=== PATIENT | female | born 1980 | race Caucasian/White ===

== ENCOUNTER 2022-07-09 19:33 | Emergency (ER) | payer BC, SELFPAY ==
[2022-07-09 19:35] VITALS: BP 143/86; PULSE 86; RESP 18; TEMP 37.1; O2SAT 100
[2022-07-09 21:55] VITALS: BP 122/80; PULSE 74; RESP 18; O2SAT 100
[2022-07-09 22:41] LABS: Basophils Absolute Auto 0.1 K/mm3 (0.0-0.1); Basophils Percent Auto 0.5 % (0.2-1.2); Eosinophils Absolute Auto 0.2 K/mm3 (0-0.3); Eosinophils Percent Auto 1.2 % (0-4.4); Hematocrit 46.2 % (37.0-47.0); Hemoglobin 15.5 g/dL (12.0-15.0); Immature Granulocyte Absolute 0.04 K/mm3 (0.00-0.031); Immature Granulocyte Percent A 0.3 % (0-0.5); Mean Corpuscular HGB Conc 33.5 g/dl (32-36); Mean Corpuscular Hemoglobin 30.2 pg (26-34); Mean Corpuscular Volume 89.9 fl (80-100); Mean Platelet Volume 9.6 fl (7.4-10.4); Monocytes Percent Auto 6.7 % (2.6-8.5); Neutrophils Absolute Auto 8.4 K/mm3 (1.3-6.7); Neutrophils Percent Auto 56.3 % (45.5-73.1); Platelet Count Result 307 k/mm3 (150-375); Red Blood Count 5.14 M/mm3 (4.2-5.4); Red Cell Distribution Width 12.8 % (11.5-14.5); White Blood Count 14.9 K/mm3 (4.5-10.0)
[2022-07-09 22:55] LABS: Alanine Aminotransferase 22 U/L (6-35); Albumin Level 4.5 g/dL (3.5-5.1); Alkaline Phosphatase 96 U/L (38-126); Anion Gap 5 mmol/L (8-16); Aspartate Amino Transferase 21 U/L (14-36); Bilirubin,Total 0.6 mg/dL (0.2-1.3); Blood Urea Nitrogen 12 mg/dL (7-17); Calcium 8.9 mg/dL (8.4-10.2); Carbon Dioxide 29 mmol/L (22-30); Chloride 106 mmol/L (98-107); Estimated CRCL calculation 100 ml/min; Estimated Glomerular Filt Rate > 60; Glucose 93 mg/dL (65-110); Potassium 3.8 mmol/L (3.4-5.0); Sodium 140 mmol/L (137-145)
--- NOTE | 2022-07-09 23:19 | ED.GENADULT ---
HPI - General Adult General Chief complaint: Extremity Injury, Upper Stated complaint: Hand swelling Time Seen by Provider: 07/09/22 21:04 History of Present Illness HPI narrative: This is a 42-year-old female who presents with chief complaint of rash to the right upper extremity. She was seen in urgent care prior to arrival who sent her here to the department for further evaluation. She states she just noticed this today around noon. Notes 2 areas to the forearm and right upper arm. Denies any pain or itching. Denies any new medications. She has not been on any antibiotics. No new soaps or detergents. No further location of rash. Denies having any pain. Denies fevers, chills, headache, chest pain shortness of breath abdominal pain.. Related Data Allergies Allergy/AdvReac Type Severity Reaction Status Date / Time codeine Allergy Severe rash Verified 07/09/22 20:34 metoprolol Allergy Severe Rash Verified 07/09/22 20:34 Review of Systems Review of Systems: CONSTITUTIONAL: Denies fever, chills, or sweats. EYES: Denies visual changes, redness, or discharge. ENT: Denies rhinorrhea, congestion, sore throat, or otalgia. CARDIOVASCULAR: Denies chest pain, palpitations, or edema. RESPIRATORY: Denies cough or dyspnea. GASTROINTESTINAL: Denies abdominal pain, nausea, vomiting, or diarrhea. GENITOURINARY: Denies dysuria or hematuria. SKIN: Endorses rash. Denies itching, denies erythema. MUSCULOSKELETAL: Denies back pain, joint pain, or myalgia. NEUROLOGIC: Denies headache, numbness, dizziness, or weakness. PSYCHIATRIC: Denies anxiety or depression. [facility] Family History Family History (Updated 01/21/14 @ 07:13 by DOCTOR UNKNOWN) Sibling Family history of malignant neoplasm of brain Mother Family history of elevated blood lipids, Onset Age: 30 Family history of thyroid disease Other Family history of heart disease in male family member before age 55 Social History Social History (Updated 11/01/20 @ 12:44 by Sheryl Morin, [facility]) Smoking packs per day: 0.5 Smoking cigarettes per day: 10.0 Years smoked: 20 Smoking pack-years: 10.00 Tobacco type: cigarettes Second hand tobacco smoke exposure: No Alcohol intake: current Alcohol use details: social Exam Narrative: GENERAL: Well-appearing, well-nourished, and in no acute distress. HEAD: Normocephalic, atraumatic. EYES: PERRLA and EOMI. ENT: Nares clear, no rhinorrhea or epistaxis. Mucous membranes moist. Oropharynx without tonsillar hypertrophy exudate or other lesions. NECK: Supple. No adenopathy or masses. CHEST: No respiratory distress. Clear to auscultation. No wheezes rales or rhonchi HEART: Regular rate and rhythm. No murmur heard. Normal peripheral pulses. ABDOMEN: Soft, nontender, nondistended, normal active bowel sounds. EXTREMITIES: Normal range of motion. No edema. Normal cap refill SKIN: 3 patches of petechial rash noted to the right dorsal forearm, left medial humerus. Rashes to the proximal forearm are linear in nature. Nonblanching. No surrounding erythema. Skin is warm and dry. NEURO: Alert and oriented x3. No focal deficits. PSYCH: Normal mood and affect. Course Vital Signs Vital signs: Vital Signs Temperature 98.7 F 07/09/22 19:35 Pulse Rate 86 07/09/22 19:35 Respiratory Rate 18 07/09/22 19:35 Blood Pressure 143/86 H 07/09/22 19:35 Pulse Oximetry 100 07/09/22 19:35 Oxygen Delivery Room Air 07/09/22 19:35 Temperature 98.7 F 07/09/22 19:35 Pulse Rate 74 07/09/22 21:55 Respiratory Rate 18 07/09/22 21:55 Blood Pressure 122/80 07/09/22 21:55 Pulse Oximetry 100 07/09/22 21:55 Oxygen Delivery Room Air 07/09/22 19:35 Medical Decision Making MDM Narrative Medical decision making narrative: This is a 42-year-old female who presents with a petechial rash to the right upper extremity sent by urgent care. They were concerned for her emergent findings such as a DVT. Clinically do
[2022-07-09 23:21] VITALS: BP 124/81; PULSE 69; RESP 12; O2SAT 100
== END 2022-07-09 23:42 | disposition home or self-care (01) ==
PROVIDERS: Emergency Provider Physician Assistant; PCP Internal Medicine
DX: R23.3 Spontaneous ecchymoses (principal); F17.210 Nicotine dependence, cigarettes, uncomplicated
CPT/HCPCS: 36415; 80053; 85025; 99283